=== PATIENT | male | born 1955 | race Caucasian/White ===

== ENCOUNTER 2020-12-06 23:40 | Inpatient (IN) | payer OTHER, MEDICAID ==
[~2020-12-06] VITALS: Ht 170.2 cm; Wt 90.7 kg
[2020-12-06 23:51] VITALS: BP 137/70
--- NOTE | 2020-12-06 23:51 | NUR ---
PT HANG ALS. TAKEN TO BED 7
--- NOTE | 2020-12-06 23:51 | NUR ---
65/M BIBA FROM [facility] DUE TO ABNORMAL LABS (HGB 6.8). PT AAOX4 AND ABLE TO MAKE NEEDS KNOWN. PT CURRENTLY ON TRACH TO VENT. PT NOT IN DISTRESS. ABD SOFT AND NONTENDER, PT WITH GTUBE IN PLACE. PT WITH MALDONADO CATHETER DRAINING WELL. SKIN IS WARM AND DRY. PT WITH SACRAL AND HEEL WOUND. PMH: CVA, HTN, RESPI FAILURE, COPD NKDA
--- NOTE | 2020-12-06 23:52 | NUR ---
Respiratory Therapist at bedside for respiratory intervention.
[2020-12-07] MEDS ORDERED: NACL 0.9% 1,000 ML IV ONE
[2020-12-07 00:19] VITALS: BP 134/66
[2020-12-07 00:23] LABS: BASOPHILS # (AUTO) 0.1 K/uL (0.00-0.22); BASOPHILS % (AUTO) 0.8 % (0.0-2.0); EOSINOPHILS # (AUTO) 1.1 K/uL (0-0.4); EOSINOPHILS % (AUTO) 6.5 % (0.0-4.0); HEMATOCRIT 22.3 % (36-52); LYMPHOCYTES # (AUTO) 1.6 K/uL (2.0-11.5); LYMPHOCYTES % (AUTO) 9.6 % (20.5-51.1); MEAN CORPUSCULAR HEMOGLOBIN 26 pg (27-31); MEAN CORPUSCULAR HGB CONC 31 g/dL (33-37); MEAN CORPUSCULAR VOLUME 83.5 fL (80-94); MONOCYTES # (AUTO) 1.5 K/uL (0.8-1.0); NEUTROPHILS # (AUTO) 12.4 K/uL (1.8-7.7); NEUTROPHILS % (AUTO) 74.1 % (42.2-75.2); PLATELET COUNT (AUTO) 664 K/uL (140-450); RED BLOOD CELL COUNT(AUTO) 2.67 MIL/uL (4.20-6.10); RED CELL DISTRIBUTION WIDTH 20.1 % (11.6-13.7); WHITE BLOOD COUNT (AUTO) 16.7 K/uL (4.8-10.8)
[2020-12-07 00:32] LABS: HEMOGLOBIN 6.9 g/dL (12.0-18.0)
[2020-12-07] MEDS ORDERED: ALBUTEROL SULFATE/IPRATROPIU 3 ML SOL IH ONE ×2 (00:40→02:00)
--- NOTE | 2020-12-07 00:43 | NUR ---
Respiratory Therapist at bedside for respiratory intervention.
--- NOTE | 2020-12-07 01:05 | NUR ---
PLACED PT ON VENT PER ARRIVAL IN ER ON THIS FOLLOWING SETTING PRVC 28%, 450, R16 PEEP 5, SATING 97%. PT IS TRACHED WITH PORTEX SIZE 8. AIRWAY PATENT, ALARM SET AUDIBLE, VENTILATOR IS PLUGGED INTO THE RED OUTLET, AMBU BAG @ BEDSIDE . NO RESPIRATORY DISTRESS NOTED AT THIS TIME. B/S PER ARRIVAL IS RALES BILATERALLY. WILL CONTINUE TO MONITOR.
[2020-12-07 01:08] LABS: ALBUMIN 2.4 g/dL (3.4-5.0); CREATININE 0.6 mg/dL (0.6-1.3); THYROID STIMULATING HORMONE 5.86 uIU/mL (0.34-3.74)
[2020-12-07 01:19] LABS: ANION GAP 9.5 (8-16); CARBON DIOXIDE 31.4 mmol/L (21-32); POTASSIUM 4.9 mmol/L (3.5-5.1); TOTAL BILIRUBIN 0.2 mg/dL (0.0-1.0)
--- NOTE | 2020-12-07 01:52 | NUR ---
Dr. Ramsey examining patient.
[2020-12-07] MEDS ORDERED: HYDROcodone/APAP 5/325 MG 1 TAB TAB PO ONE (02:00)
[2020-12-07] MEDS ORDERED: AZITHROMYCIN 500 MG in DEXTROSE 5% 250 ML IV ONE (02:05)
--- NOTE | 2020-12-07 02:08 | NUR ---
PATIENT GAVE VERBAL CONSENT TO HAVE CT ANGIO PERFORMED. PATIENT STATES UNABLE TO SIGN CONSENT FORM.
[2020-12-07] MEDS ORDERED: CRUSHER, PILL MC ONE (02:11)
--- NOTE | 2020-12-07 02:23 | NUR ---
RT AT [facility] FOR BREATHING TREATMENT.
[2020-12-07] MEDS ORDERED: AZITHROMYCIN 500 MG INJ VIAL IV ONE (02:47)
[2020-12-07] MEDS ORDERED: cefTRIAXone 1,000 MG VIAL ONE (02:47)
[2020-12-07 03:08] VITALS: BP 132/74
--- NOTE | 2020-12-07 04:09 | NUR ---
PT TAKEN TO CT
--- NOTE | 2020-12-07 04:25 | NUR ---
PT BACK FROM CT
--- NOTE | 2020-12-07 05:30 | NUR ---
PT SUCTIONED, ORAL CARE GIVEN. PT TURNED AND REPOSITIONED. PT NOT IN DISTRESS.
[2020-12-07] MEDS ORDERED: predniSONE 20 MG TAB GT ONE (05:35)
[2020-12-07] MEDS ORDERED: DEXT 5% / NACL 0.9% 1,000 ML IV ONE (05:55)
[2020-12-07] MEDS ORDERED: ACET-8386 GT (06:36)
[2020-12-07] MEDS ORDERED: CINN1CAP2 GT (06:36)
[2020-12-07] MEDS ORDERED: DOCU-299 GT (06:36)
[2020-12-07] MEDS ORDERED: CHLOR MM (06:36)
[2020-12-07] MEDS ORDERED: SENN-73 GT (06:36)
[2020-12-07] MEDS ORDERED: ONDA4TAB GT (06:36)
[2020-12-07] MEDS ORDERED: LACT1TAB35 GT (06:36)
[2020-12-07] MEDS ORDERED: CRAN450T5 GT (06:36)
[2020-12-07] MEDS ORDERED: HEPA500056 SQ (06:36)
[2020-12-07] MEDS ORDERED: PUL.5N INH (06:36)
[2020-12-07] MEDS ORDERED: PSYL0.4C2 GT (06:36)
[2020-12-07] MEDS ORDERED: ACET-2619 GT (06:36)
[2020-12-07] MEDS ORDERED: GABA-636 GT (06:36)
[2020-12-07] MEDS ORDERED: LANS15EC28 GT (06:36)
[2020-12-07] MEDS ORDERED: THIA500T9 GT (06:36)
[2020-12-07] MEDS ORDERED: MIRABULK GT (06:36)
--- NOTE | 2020-12-07 07:15 | NUR ---
REPORT RECEIVED FROM LORENZA RICE FOR CONTINUITY OF CARE. PT HAS CERIVCAL COLLAR. A&OX4. PT TRACH TO VENT. AC/VC MODE FIO2 28%, TV 450, RATE 16, PEEP 6. PT SINUS TACHYCARDIA ON MONITOR. LUNG SOUNDS CLEAR. IV SITE RT FA 20G, INFUSING D5/NS AT 65ML/HR AND LT AC 20G, INTACT, PATENT, GOOD BLOOD RETURN. GTUBE IN PLACE, CLAMPED. MALDONADO CATHETER IN PLACE. SKIN DRY WARM TO TOUCH. SACRAL WOUND NOTED, R HEEL DTI AND LT HEEL REDNESS.
--- NOTE | 2020-12-07 07:20 | NUR ---
PT HAS FEVER, 100.8F. UNABLE TO START BLOOD TRANSFUSION. TYLENOL PRN GIVEN. COOLING MEASURES IN PLACE.
--- NOTE | 2020-12-07 07:25 | NUR ---
DR COOPER AT BEDSIDE EXAMINING PT
[2020-12-07] MEDS: ACETAMINOPHEN 650 MG/20.3 ML UDC GT PRN (07:52)
[2020-12-07] MEDS ORDERED: DOCUSATE SODIUM 100 MG GELCAP PO PRN (08:25)
[2020-12-07] MEDS ORDERED: POTASSIUM CHLORIDE 10 MEQ TABER PO PRN (08:25)
[2020-12-07] MEDS ORDERED: guaiFENesin DM 200/20 MG-10 ML 10 ML UDC PO PRN (08:25)
[2020-12-07] MEDS ORDERED: ACETAMINOPHEN 325 MG TAB PO PRN (08:25)
[2020-12-07] MEDS ORDERED: ONDANSETRON 4 MG/2 ML VIAL IM/IVP PRN (08:25)
--- NOTE | 2020-12-07 08:54 | NUR ---
DR MAYNARD AT BEDSIDE EXAMINING PT
--- NOTE | 2020-12-07 09:00 | NUR ---
RECEIVED CALL FROM PT'S FAMILY FESTUS. UPDATED ON PT STATUS. ALL QUESTIONS AND CONCERNS ANSWERED AT THIS TIME.
[2020-12-07] MEDS ORDERED: PIPERACILLIN/TAZOBACTAM 3.375 GM VIAL IV ONE (09:27)
[2020-12-07] MEDS ORDERED: PIPERACILLIN/TAZOBACTAM 3.375 GM in DEXTROSE 5% 50 ML IV SCH (09:30)
[2020-12-07] MEDS: PANTOPRAZOLE 40 MG TABEC PO SCH (09:41)
[2020-12-07 11:00] VITALS: BP 142/69
--- NOTE | 2020-12-07 11:25 | NUR ---
LAB AT BEDSIDE
--- NOTE | 2020-12-07 13:05 | NUR ---
Patient will be admitted to care of DR MAYNARD. Admited to TELEMETRY. Will go to room 122B. Belongings list completed. Report to VIPUL RICE.
--- NOTE | 2020-12-07 13:24 | NUR ---
TRANSFERRED PT FROM ED TO TELE WITH NO INCIDENT. VENT CONNECTED TO RED OUTLET. ALARMS AUDIBLE. NO SOB OR DISTRESS NOTED. PT AWAKE AND ALERT.
[2020-12-07 13:30] VITALS: BP 124/61
[2020-12-07] MEDS: PIPERACILLIN/TAZOBACTAM 3.375 GM in DEXTROSE 5% 50 ML IV SCH ×2 (14:00→21:10)
[2020-12-07] MEDS: ALBUTEROL SULFATE/IPRATROPIU 3 ML SOL IH SCH ×2 (14:00→19:52)
--- NOTE | 2020-12-07 14:00 | NUR ---
DR. MALDONADO AT BEDSIDE REVIEWING PLAN OF CARE WITH PATIENT. EXPLAINED COLONOSCOPY AND EGD PROCEDURE TO PATIENT TO CHECK FOR POSSIBLE BLEEDING SOURCE. PATIENT IS AAOX3, ABLE TO MOUTH AND ANUNCIATE WORDS WITH NO SPEECH DUE TO BEING VENTILATED. PATIENT VERBALIZED UNDERSTANDING FOR BOTH PROCEDURES AND VERBALLY CONSENTED TO HAVING COLONOSCOPY AND EGD DONE TOMORROW. KRYSTAL WHITMORE AT BEDSIDE WITH DR. MALDONADO AND WITNESSED EXPLAINING TO PATIENT THE PROCEDURE AND CONSENTING FOR EGD AND COLONOSCOPY TOMORROW.
--- NOTE | 2020-12-07 14:54 | NUR ---
PATIENT HAS BEEN SCREENED AND CATEGORIZED HIGH NUTRITION RISK. PATIENT WILL BE SEEN WITHIN 1-2 DAYS OF ADMISSION. 12/07/20-12/08/[address]
[2020-12-07] MEDS ORDERED: SENNA 8.6 MG TAB PO SCH (15:30)
[2020-12-07] MEDS ORDERED: MAGNESIUM CITRATE 300 ML BTL PO SCH (15:30)
[2020-12-07] MEDS ORDERED: BOWEL EVACUANT DRINK 4,000 ML PDS PO SCH (15:30)
--- NOTE | 2020-12-07 15:32 | NUR ---
DC PLANNING: SPOKE WITH PATIENTS SISTER FESTUS BY PHONE. STATES SHE IS THE DPOA FOR THE PATIENT, ALSO ASKS THAT HER SISTER CRISTIAN NOT BE CALLED SHE IS VERY EMOTIONAL ABOUT HER BROTHER. PATIENT RESIDES AT [facility], FESTUS WOULD LIKE THE PATIENT TO RETURN THERE. PATIENT IS BEDBOUND AND TOTALLY DEPENDENT FOR ALL CARE BUT IS ABLE TO MOVE HIS RIGHT ARM. PATIENT IS ALERT AND ORIENTED, ABLE TO COMMUNICATE BY MOUTHING WORDS. PATIENT IS S/P FALL IN AUGUST WITH CERVICAL FRACTURE, WAS LIVING AT HOME PRIOR THIS EVENT. CM WILL CONTINUE TO FOLLOW FOR NEEDS.. Addendum: 12/14/20 at 1425 by Jodie Campbell CM DC PLANNING: DC ORDER RECEIVED FOR PATIENT TO RETURN TO [facility], CONTINUE IV ABX AND WOUND CARE. INFORMATION FAXED TO BANDAR AT [facility], PATIENT ASSIGNED RM 121C, DR NICHOLE ACCEPTING. [facility] WILL TRANSPORT WITH CCT/RT, RECLAMATION ENGINEER TIME 1630. ABOVE ENDORSED TO PATIENTS KRYSTAL MATTHEW, SIRIA ALSO SPOKE WITH PATIENTS SISTER FESTUS TO LET HER KNOW. CM WILL CONTINUE TO FOLLOW FOR NEEDS.
[2020-12-07] MEDS: HYDROcodone/APAP 7.5/325 MG 1 TAB PO PRN (15:52)
--- NOTE | 2020-12-07 15:53 | NUR ---
PATIENT COMPLAINS OF LOW BACK PAIN. NORCO GIVEN AT THIS TIME. OTHER SCHEDULED MEDICATIONS DUE GIVEN. WILL CONTINUE TO MONITOR.
[2020-12-07] MEDS ORDERED: SODIUM FERRIC GLUCONATE 125 MG in NACL 0.9% 100 ML IV SCH (17:00)
[2020-12-07 17:12] LABS: CHOL/HDL RATIO 3.8 (1-4.5); FREE T4 (FREE THYROXINE) 1.03 ng/dL (0.76-1.46)
[2020-12-07 17:13] LABS: APPEARANCE,URINE CLEAR (CLEAR); BILIRUBIN,URINE NEGATIVE (NEGATIVE); BLOOD, URINE NEGATIVE (NEGATIVE); COLOR,URINE YELLOW (YELLOW); LEUKOCYTE ESTERASE ,URINE 2+ (NEGATIVE); NITRITE, URINE POSITIVE (NEGATIVE); PH,URINE >=9.0 (5.0-9.0); UGLUCOSE NEGATIVE (NEGATIVE)
[2020-12-07 17:22] LABS: PROTHROMBIN TIME 11.3 secs (10.8-13.4)
[2020-12-07 17:26] LABS: BARBITURATE, URINE NEGATIVE ng/ml (NEG <=200); BENZODIAZEPINE, URINE NEGATIVE ng/mL (NEG <=200); CANNABINOID, URINE NEGATIVE ng/mL (NEG <=50); COCAINE, URINE NEGATIVE ng/mL (NEG <=300); PHENCYCLIDINE SCREEN,URINE NEGATIVE ng/mL (NEG <=25)
[2020-12-07 17:27] LABS: OPIATE, URINE POSITIVE ng/mL (NEG <=2000)
[2020-12-07] MEDS: LACTULOSE 20 GM/30 ML UDC PO SCH ×2 (17:29→21:11)
--- NOTE | 2020-12-07 17:29 | NUR ---
SCHEDULED MEDICATIONS DUE GIVEN WILL CONTINUE TO MONITOR.
[2020-12-07 19:23] LABS: CALCIUM OXALATE CRYSTALS,UR 0-10 /HPF (None Seen); RBC,URINE 0-5 /HPF (0-5)
--- NOTE | 2020-12-07 19:23 | NUR ---
GAVE BEDSIDE REPORT TO TECHNICAL COMMUNICATION TEACHER NURSE FOR CONTINUITY OF CARE. PT IS STABLE.
--- NOTE | 2020-12-07 19:25 | NUR ---
RECEIVED REPORT FORM AM SHIFT RN. PATIENT ON BED AWAKE, ALERT RESTING WITH TRACH TO VENT FIO2 AT 28. NO ACUTE DISTRESS NOTED AT THIS TIME. IVF OF D5NS AT 65 ML/HR INFUSING WELL ON THE RFA. SAFETY MEASURES IN PLACE. CALL LIGHT WITHIN REACH.
[2020-12-07 20:00] VITALS: BP 120/64
--- NOTE | 2020-12-07 21:15 | NUR ---
SCHEDULED MEDS GIVEN ORDERED.
--- NOTE | 2020-12-07 22:15 | NUR ---
STARTED BLOOD TRANSFUSION 1 UNIT PRBC. V/S MONITORED AND RECORDED.
--- NOTE | 2020-12-07 22:30 | NUR ---
NO ADVERSE REACTION NOTED. NO SOB, RESPIRATION EVEN UNLABORED. AFEBRILE.
[2020-12-08] VITALS (8 sets, daily range): BP systolic 120–133; BP diastolic 60–80
[2020-12-08] MEDS: ZOLPIDEM 5 MG TAB PO PRN (00:16)
--- NOTE | 2020-12-08 01:10 | NUR ---
ORAL CARE RENDERED
--- NOTE | 2020-12-08 04:00 | NUR ---
PATIENT IS KEPT CLEAN, DRY AND COMFORTABLE.
[2020-12-08] MEDS: PIPERACILLIN/TAZOBACTAM 3.375 GM in DEXTROSE 5% 50 ML IV SCH ×3 (05:08→21:15)
[2020-12-08 05:28] LABS: BASOPHILS % (AUTO) 0.2 % (0.0-2.0); EOSINOPHILS # (AUTO) 0.1 K/uL (0-0.4); EOSINOPHILS % (AUTO) 0.8 % (0.0-4.0); HEMATOCRIT 22.9 % (36-52); HEMOGLOBIN 7.3 g/dL (12.0-18.0); LYMPHOCYTES # (AUTO) 1.9 K/uL (2.0-11.5); LYMPHOCYTES % (AUTO) 11.1 % (20.5-51.1); MEAN CORPUSCULAR HEMOGLOBIN 27 pg (27-31); MEAN CORPUSCULAR HGB CONC 32 g/dL (33-37); MEAN CORPUSCULAR VOLUME 84.5 fL (80-94); MONOCYTES # (AUTO) 1.8 K/uL (0.8-1.0); MONOCYTES % (AUTO) 10.8 % (1.7-9.3); NEUTROPHILS # (AUTO) 13.1 K/uL (1.8-7.7); NEUTROPHILS % (AUTO) 77.1 % (42.2-75.2); PLATELET COUNT (AUTO) 595 K/uL (140-450); RED BLOOD CELL COUNT(AUTO) 2.72 MIL/uL (4.20-6.10); RED CELL DISTRIBUTION WIDTH 19.6 % (11.6-13.7)
[2020-12-08 06:21] LABS: ANION GAP 14.6 (8-16); CREATININE 0.7 mg/dL (0.6-1.3); POTASSIUM 3.6 mmol/L (3.5-5.1)
[2020-12-08] MEDS: ALBUTEROL SULFATE/IPRATROPIU 3 ML SOL IH SCH ×3 (07:15→19:09)
--- NOTE | 2020-12-08 07:15 | NUR ---
ENDORSED TO AM RN FOR CONTINUITY OF CARE. PT IN STABLE CONDITION.
--- NOTE | 2020-12-08 07:30 | NUR ---
ARRIVED TO FIND PT TOLERATING VENT SETTINGS. NO RESP DISTRESS NOTED, GAVE PT RESP TX, AND NOTIFIED PT THAT I WOULD BE BACK LATER. PT INDICATED HE UNDERSTOOD AND IS DOING WELL.
--- NOTE | 2020-12-08 07:32 | NUR ---
RECEIVED BEDSIDE REPORT FROM AUTOMATIC EQUIPMENT TECHNICIAN NURSE FOR CONTINUITY OF CARE. PATIENT IS AO X4, ABLE TO MAKE NEEDS KNOWN. ON TRACH TO VENT WITH RESPIRATIONS EVEN AND UNLABORED. NO RESPIRATORY DISTRESS NOTED. VENT SETTINGS FIO2: 28% VT 450 R 16 PEEP 5. SKIN IS WARM, DRY, AND NON-DIAPHORETIC. IV SITE ON RFA 20G AND LAC 20G. BOTH INTACT AND PATENT. INFUSING D5NS AT 65 ML/HR. NOTED SACRAL AND HEEL WOUND, NO DRAINAGE AT THIS TIME. DENIES PAIN AT THE MOMENT. WOUND CARE EVALUATION WAS ORDERED. PLAN OF CARE DISCUSSED. SAFETY MEASURES IN PLACE. BED IN LOW POSITION. CALL LIGHT WITHIN REACH. WILL CONTINUE TO MONITOR.
--- NOTE | 2020-12-08 08:01 | NUR ---
FNS CONSULT FOR WOUNDS/PRESSURE INJURIES AND FNS REFERRAL FOR DYSPHAGIA, UNHEALED WOUNDS, AND TF WERE RECEIVED.
[2020-12-08] MEDS: PANTOPRAZOLE 40 MG TABEC PO SCH (08:55)
[2020-12-08] MEDS: LACTULOSE 20 GM/30 ML UDC PO SCH ×2 (08:55→13:00)
--- NOTE | 2020-12-08 09:25 | NUR ---
WOUND CARE EVALUATION NOTE: SKIN ASSESSMENT DONE ON THIS PT WITH HISTORY OF S/P FALL AND RESULTING IN CERVICAL INJURY PT. ADMITTED FROM SNF WITH ABNORMAL LABS AND MULTIPLE PRESSURE INJURIES WITH INFECTED SACRAL WOUND, HISTORY OF CHRONIC RESPIRATORY FAILURE ON VENT, DYSPHAGIA WITH PEG TUBE, SEVERE MALNUTRITION. PT. FOLLOW DIRECTIONS AND MOUTH READING WITH COMMUNICATION. POC DISCUSSED WITH DR. MAYNARD REQUEST SURGEON CONSULT AND POSSIBLE DEBRIDEMENT. PT. REFUSES HEEL RAISERS AT FIRST THEN WITH RISK AND BENIFIT EXPLAINED PT. AGREEABLE WITH PLAN. POC DISCUSSED WITH PRIMARY RN AND PT. PT. MOUTHING UNDERSTANDING. CLARIFICATION: LEFT HEEL SKIN INTACT, NON-BLANCHABLE REDNESS INTEGUMENTARY -NECK SKIN HAIRY AND INTACT, CERVICAL COLLAR IN PLACE -TRACH MARIMAR-STOMA SKIN INTACT AND DRY -RIGHT HEEL PRESSURE INJURY UN-STAGEABLE 2X1.5CM BLACK ESCHAR TISSUE, NO ODOR, MARIMAR-WOUND SKIN BLANCHABLE REDNESS, PEELING CALLUSES MOIST AND INTACT. -PRESSURE INJURY STAGE 1 LEFT HEEL 2X2CM PEELING CALLUSES MUSHY AND INTACT. -LEFT LATERAL MALLEOLUS PRESSURE INJURY STAGE 3, 2X2CM 70 % YELLOW SLOUGH AND 30% PINK TISSUE, NO ODOR, MARIMAR-WOUND SKIN INTACT BLANCHABLE REDNESS. -SACRALCOCCYX PRESSURE INJURY STAGE 4 [id number] TUNNEL WOUND TO 6 OCLOCK DIRECTION 2CM AND UNDERMINING TO 3 OCLOCK DIRECTION 1CM,WOUND BED 80% MIX OF BLACK, YELLOW AND DARK BROWN MOIST SLOUGH TISSUE, 20% OF PALE PINK TISSUE,MODERATE PURULENT DRAINAGE , MILD ODOR, MARIMAR-WOUND SKIN MOIST, INTACT. RECOMMENDATIONS: -SURGEON CONSULT -SKIN INSPECTION UNDER NECK COLLAR QSHIFT -SACRALCOCCYX AND LEFT LATERAL MALLEOLUS CLEANS WITH WOUND CARE SOLUTION, PAT DRY, APPLY SILVER ALGINATE DRESSING TO WOUND BED AND COVER WITH ABD. DRESSING AND SECURE WITH TAPE QD AND PRN IF SOILING -APPLY SOAKED BETADINE DRESSING TO RIGHT HEEL WRAPE WITH KERLIX ROLL SECURED WITH TAPE QD AND PRN IF SOILING -TURN AND REPOSITION PATIENT Q 2H -ASSESS AND MONITOR SKIN CONDITION DURING POSITION CHANGE -OFFLOAD BILATERAL HEELS BY PLACING PILLOWS UNDER CALVES AT ALL TIMES, UNLESS OTHERWISE CONTRAINDICATED -PRESSURE REDISTRIBUTION SURFACE AND PLACING PILLOWS/ OFFLOADING SACRALCOCCYX AND LEFT HIP -KEEP SKIN CLEAN AND DRY AT ALL TIMES.
--- NOTE | 2020-12-08 09:30 | NUR ---
WOUND CARE NURSE YURIY AT BEDSIDE EVALUATING PATIENT'S WOUNDS.
--- NOTE | 2020-12-08 09:45 | NUR ---
OBTAIN STOOL OCCULT SAMPLE. WILL TURN IN TO LAB.
--- NOTE | 2020-12-08 09:46 | NUR ---
ALL SCHEDULED MEDS GIVEN. PATIENT IS STABLE. NO DISTRESS NOTED. WILL CONTINUE TO MONITOR.
--- NOTE | 2020-12-08 10:09 | NUR ---
ASSISTED DINKEY OPERATOR SLATE AND AIDE WITH TURNING, CLEANING, AND REPOSITIONING. PT WAS NOT HAPPY ABOUT REPOSITIONING BUT UNDERSTANDS THAT IN ORDER FOR HEALING OF WOUNDS TO BE OPTIMUM HE NEEDS TO COOPERATE WITH REPOSITIONING.
--- NOTE | 2020-12-08 10:40 | NUR ---
PATIENT REQUESTED TO BE SUCTIONED. PATIENT TOLERATED SUCTION AND IS RELIEVED. DENIES DISCOMFORT OR PAIN AT THE MOMENT. WILL CONTINUE TO MONITOR.
[2020-12-08 10:59] LABS: FERRITIN 297 ng/mL (30 - 400)
--- NOTE | 2020-12-08 13:03 | NUR ---
DR. MAYNARD APPROVED RD RECOMMENDATIONS FOR VITAMIN C 500 MG BID AND MULTIVITAMIN ONCE DAILY. RN WAS NOTIFIED.
[2020-12-08 13:05] LABS: T4 (THYROXINE) 6.8 ug/dL (4.5 - 12.0)
--- NOTE | 2020-12-08 13:08 | NUR ---
12/08/20 RD INITIAL ASSESSMENT COMPLETED PLEASE REFER TO NUTRITION ASSESSMENT UNDER CARE ACTIVITY FOR ESTIMATED NUTRITIONAL NEEDS. 1. RECOMMEND VITAL 1.2 @ 70 ML/HR; FREE WATER FLUSH OF 110 ML Q4H -THIS WILL PROVIDE 2016 KCAL AND 126 GM OF PROTEIN, MEETING 100% OF ESTIMATED KCAL AND PROTEIN NEEDS. 2. RECOMMEND VITAMIN C 500 MG AND MULTIVITAMIN ONCE DAILY. STACIE BID 3. RD TO FOLLOW-UP 2-3 DAYS, HIGH RISK AKIN BAUER RD
[2020-12-08] MEDS: ALGINATE DRESSING MC SCH (13:14)
[2020-12-08] MEDS: GAUZE TP SCH (13:14)
--- NOTE | 2020-12-08 13:32 | NUR ---
ALL SCHEDULED MEDS GIVEN. PT IS STABLE. NO DISTRESS NOTED. WILL CONTINUE TO MONITOR.
--- NOTE | 2020-12-08 13:35 | NUR ---
PATIENT DISCHARGED OFF THE UNIT. FAMILY PICKED UP PATIENT AT THE FRONT OF THE LOBBY. IV AND ID BAND REMOVED. PT WAS STABLE PRIOR TO DISCHARGE. Addendum: 12/08/20 at 1402 by Sidney Nelson RN RN WRONG NOTE ON PATIENT.
--- NOTE | 2020-12-08 13:40 | NUR ---
PATIENT REQUESTED TO BE SUCTIONED. PATIENT TOLERATED SUCTION AND IS RELIEVED. DENIES DISCOMFORT OR PAIN AT THE MOMENT. WILL CONTINUE TO MONITOR.
[2020-12-08] MEDS ORDERED: DEXT 5% /NACL 0.9% 1,000 ML IV SCH (13:50)
--- NOTE | 2020-12-08 13:50 | NUR ---
DR. MALDONADO AND OR NURSES AT BEDSIDE PREPARING PATIENT FOR COLONOSCOPY AND EGD PROCEDURE. DR. MALDONADO DISCUSSED RISKS AND BENEFITS TO PATIENT REGARDING BOTH PROCEDURES. PATIENT ACKNOWLEDGED PROCEDURES AND SIGNED THE CONSENT FORMS. ALSO HAS SIGNED THE CONSENT FORMS.
--- NOTE | 2020-12-08 14:15 | NUR ---
PATIENT UNDERGOING COLONOSCOPY AND EGD. PT WAS STABLE PRIOR TO BEGINNING PROCEDURE.
[2020-12-08] MEDS ORDERED: fentaNYL citrate 0.05 MG/ML VIAL ONE (14:44)
[2020-12-08] MEDS ORDERED: MIDAZOLAM 5 MG/5 ML VIAL ONE (14:44)
[2020-12-08] MEDS ORDERED: diphenhydrAMINE 50 MG/ML VIAL ONE (14:45)
--- NOTE | 2020-12-08 16:10 | NUR ---
PATIENT COMPLETED BOTH EGD AND COLONOSCOPY PROCEDURE. PT'S VS IS STABLE AND NO S/S OF RESPIRATORY DISTRESS NOTED. WILL CONTINUE TO MONITOR.
[2020-12-08] MEDS ORDERED: POTASSIUM CHLORIDE 20% 40 MEQ/15 ML UDC PO SCH (16:30)
[2020-12-08] MEDS ORDERED: MIDAZOLAM 2 MG/2 ML VIAL IVP ONE (16:40)
[2020-12-08] MEDS ORDERED: fentaNYL citrate 0.05 MG/ML VIAL IVP ONE (16:40)
[2020-12-08] MEDS ORDERED: FUROSEMIDE 20 MG/2 ML VIAL IVP SCH (17:00)
--- NOTE | 2020-12-08 19:00 | NUR ---
STARTED PATIENT BACK ON JEVITY 1.2 RUNNING AT 40 ML/HR BUT GOAL IS AT 65 ML/HR. H2O FLUSH AT 50 ML/HR. NO RESIDUAL NOTED. WILL CONTINUE TO MONITOR
[2020-12-08] MEDS: DEXT 5% / NACL 0.9% 1,000 ML IV SCH (19:03)
--- NOTE | 2020-12-08 19:25 | NUR ---
ENDORSED TO PRINTING AGENT NURSE FOR CONTINUITY OF CARE. PT IS STABLE.
--- NOTE | 2020-12-08 19:30 | NUR ---
RECEIVED REPORT FORM KRYSTAL KARIMI. PATIENT IN BED RESTING WITH TRACH TO VENT FI02 AT 28 , RATE AT 16. NO SOB NOTED. IVF INFUSING AT 120 ML/HR. G-TUBE FEEDING OF JEVITY 1.2 AT 40 ML/HR WITH A GOAL OF 65 ML/HR. CALL LIGHT WITHIN REACH, SAFETY MEASURES IN PLACE. DENIES PAIN AT THIS TIME. WILL CONTINUE TO MONITOR.
[2020-12-08] MEDS: FERROUS SULFATE 300 MG/5 ML UDC GT SCH (21:15)
[2020-12-08] MEDS: ASCORBIC ACID 500 MG/5 ML ORASYR GT SCH (21:15)
--- NOTE | 2020-12-08 21:28 | NUR ---
SCHEDULED MEDS GIVEN ORDERED.
[2020-12-08] MEDS: HYDROcodone/APAP 7.5/325 MG 1 TAB PO PRN (23:21)
[2020-12-09] VITALS (7 sets, daily range): BP systolic 112–143; BP diastolic 59–95
--- NOTE | 2020-12-09 02:27 | NUR ---
ORAL CARE RENDERED. SUCTIONED NEEDED
[2020-12-09] MEDS: DEXT 5% / NACL 0.9% 1,000 ML IV SCH ×4 (03:15→23:33)
[2020-12-09] MEDS: PIPERACILLIN/TAZOBACTAM 3.375 GM in DEXTROSE 5% 50 ML IV SCH ×3 (04:45→20:24)
[2020-12-09 05:22] LABS: ANION GAP 11.5 (8-16); CREATININE 0.6 mg/dL (0.6-1.3); POTASSIUM 3.5 mmol/L (3.5-5.1)
[2020-12-09 06:02] LABS: BASOPHILS # (AUTO) 0.1 K/uL (0.00-0.22); BASOPHILS % (AUTO) 0.8 % (0.0-2.0); EOSINOPHILS # (AUTO) 0.5 K/uL (0-0.4); EOSINOPHILS % (AUTO) 3.4 % (0.0-4.0); HEMATOCRIT 22.1 % (36-52); LYMPHOCYTES # (AUTO) 1.5 K/uL (2.0-11.5); MEAN CORPUSCULAR HEMOGLOBIN 27 pg (27-31); MEAN CORPUSCULAR HGB CONC 31 g/dL (33-37); MEAN CORPUSCULAR VOLUME 84.6 fL (80-94); MONOCYTES # (AUTO) 1.6 K/uL (0.8-1.0); MONOCYTES % (AUTO) 11.8 % (1.7-9.3); NEUTROPHILS # (AUTO) 9.7 K/uL (1.8-7.7); PLATELET COUNT (AUTO) 503 K/uL (140-450); RED BLOOD CELL COUNT(AUTO) 2.61 MIL/uL (4.20-6.10); RED CELL DISTRIBUTION WIDTH 20.2 % (11.6-13.7); WHITE BLOOD COUNT (AUTO) 13.2 K/uL (4.8-10.8)
--- NOTE | 2020-12-09 07:15 | NUR ---
RECEIVED BEDSIDE REPORT FROM BAGGING MACHINE OPERATOR NURSE FOR CONTINUITY OF CARE. PT IS AWAKE AND ALERT. RESPONDING TO QUESTIONS APPROPRIATELY. PT IS TRACH TO VENT WITH BREATHING UNLABORED. O2 SAT IS 98%. VENT SETTINGS; FIO2 28%, PEEP 5, VT 450, RT 16. SR ON TELE MONITORING. G TUBE IN PLACE INFUSING FEEDING AT 60 ML PER HOUR PER ORDER. SKIN IS WARM AND DRY. SACRAL WOUND WITH OPTIFOAM IN PLACE. IV IS IN THE LEFT AC 20 GAUGE AND RIGHT FOREARM 20 GAUGE INFUSING FLUIDS ORDERED. PT IS STABLE. NO DISTRESS NOTED.
--- NOTE | 2020-12-09 07:15 | NUR ---
ENDORSED TO AM SHIFT RN FOR CONTINUITY OF CARE. PATIENT IS STABLE.
[2020-12-09 07:23] LABS: HEMOGLOBIN 6.9 g/dL (12.0-18.0)
[2020-12-09] MEDS: ALBUTEROL SULFATE/IPRATROPIU 3 ML SOL IH SCH ×3 (07:29→19:23)
--- NOTE | 2020-12-09 07:51 | NUR ---
NOTIFIED DR. PAZ VIA TEXT MESSAGE ABOUT CRITICAL LAB RESULT; HGB 6.9, HCT 22.1. WILL WAIT FOR RESPONSE.
--- NOTE | 2020-12-09 09:00 | NUR ---
RECEIVED TEXT MESSAGE FROM DR. PAZ TO TRANSFUSE 1 UNIT PRBC. WILL ADMINISTER ONCE READY.
--- NOTE | 2020-12-09 09:30 | NUR ---
ORAL CARE WAS PROVIDED. PT TOLERATED IT WELL. PT WAS REPOSITIONED ORDERED. IV'S IN BOTH UPPER EXTREMITIES ARE PATENT AND INTACT. FLUIDS ARE INFUSING IN THE RIGHT FOREARM. PT IS TRACH TO VENT WITH O2 SAT AT 99%. G TUBE RESIDUAL IS 40 ML AT THIS TIME. PT IS TOLERATING FEEDING FAIRLY. PT IS STABLE.
[2020-12-09] MEDS: FERROUS SULFATE 300 MG/5 ML UDC GT SCH ×2 (09:53→20:26)
[2020-12-09] MEDS: ASCORBIC ACID 500 MG/5 ML ORASYR GT SCH ×2 (09:53→20:26)
[2020-12-09] MEDS: MULTIVITAMIN 1 TAB GT SCH (09:54)
--- NOTE | 2020-12-09 10:40 | NUR ---
CALLED BLOOD BANK AND ASKED IF UNIT OF PRBC IS READY. THEY STATED IT WASN'T READY AND WILL CALL IN THIRTY MIN WHEN ITS READY.
[2020-12-09 11:00] LABS: FOLIC ACID > 20.00 ng/mL (>3.0)
--- NOTE | 2020-12-09 11:19 | NUR ---
BLOOD BANK CALLED TO INFORM ME THAT THE UNIT OF PRBC IS READY.
--- NOTE | 2020-12-09 11:30 | NUR ---
PT WAS REPOSITIONED. PADDED BOOTS ARE IN PLACE. G TUBE FEEDING IS INFUSING. IV FLUIDS ARE INFUSING WELL, IV IS PATENT AND INTACT. NO RESPIRATORY DISTRESS NOTED ON TRACH TO VENT. WILL CONTINUE TO MONITOR PT.
[2020-12-09] MEDS: ALGINATE DRESSING MC SCH (12:34)
[2020-12-09] MEDS: GAUZE TP SCH (12:34)
--- NOTE | 2020-12-09 13:20 | NUR ---
BLOOD TRANSFUSION WAS STARTED. VS ARE STABLE. EDUCATION WAS PROVIDED AND PT NODDED FOR UNDERSTANDING. WILL CONTINUE TO MONITOR PT.
--- NOTE | 2020-12-09 14:34 | NUR ---
BLOOD TRANSFUSION STILL INFUSING. NO S/SX OF ADVERSE REACTIONS. VS ARE STABLE. BREATHING IS UNLABORED ON TRACH TO VENT. WILL CONTINUE TO MONITOR.
--- NOTE | 2020-12-09 16:30 | NUR ---
BLOOD TRANSFUSION IS DONE. ONE UNIT PRBC IS INFUSED. NO RESPIRATORY DISTRESS NOTED ON TRACH TO VENT. VS ARE STABLE. PT IS STABLE AT THIS TIME. NO ADVERSE REACTIONS NOTED. WILL CONTINUE TO MONITOR.
--- NOTE | 2020-12-09 16:32 | NUR ---
CALLED SISTER, EVA, REQUESTED BY SURGEON DR. CRABTREE. HE WANTED TO INFORM HER ABOUT THE DEBRIDEMENT OF THE SACRAL WOUND. LEFT MESSAGE TO CALL BACK. PROCEDURE DISCUSSED WITH PT. PT IS NON VERBAL, BUT ABLE TO MOUTH WORDS USING LIPS. VERIFIED BY SECOND RN. PT IS A&OX3. PT IS ALERT AND AWARE. ABLE TO MAKE NEEDS KNOWN.
--- NOTE | 2020-12-09 16:50 | NUR ---
SPOKE TO SISTER, EVA, INFORMED HER OF PLAN OF CARE REGARDING DEBRIDEMENT. SHE STATED SHE DID NOT NEED TO SPEAK TO THE SURGEON SHE DOES NOT HAVE ANY QUESTIONS.
--- NOTE | 2020-12-09 18:30 | NUR ---
PT WAS CHANGED AND REPOSITIONED. PT TOLERATED THIS WELL. NO COMPLAINTS OF PAIN AT THIS TIME. BREATHING IS UNLABORED ON TRACH TO VENT. O2 SAT IS 99%. DRESSING ON SACRAL IS DRY AND INTACT. NO DRAINAGE NOTED.
--- NOTE | 2020-12-09 19:15 | NUR ---
ENDORSED PT TO DAY SHIFT NURSE FOR CONTINUITY OF CARE. PT IS STABLE AT THIS TIME. PLAN OF CARE DISCUSSED. Addendum: 12/09/20 at 1950 by Kalli Hernandez RN MUSCULOSKELETAL PHYSIOTHERAPIST NURSE NOT DAY SHIFT NURSE
--- NOTE | 2020-12-09 19:20 | NUR ---
RECIEVED BEDSIDE ENDORSMENT FROM DAY SHIFT RN, PT LYING IN BED, A&0X3, ABLE TO MAKE NEEDS KNOWN AND NODS TO QUESTIONS YES OR NO, ST ON MONITOR, TRACH TO VENT F102 28% TV 450 PEEP 5 RATE 16, LUNGS DIMINIHED UPON AUSCULTATION, GTUBE IN PLACE INFUSING JEVITY 1.2 @ 65MLS/HR W/ FWF 50 Q6H, FEEDING HAD RESIDUAL OF 10ML, LAC 20 PIV SALINE LOCKED, RFA 20 G PIV INFUSING D5 NS @ 120MLS/HR, FC IN PLACE DRAINING VIA GRAVITY, SKIN WARM DRY AND NON INTACT, AFEBRILE, SEE WOUND ASSESSMENT, PT SHOWING NO SIGNS OF ACUTE DISTRESS, SAFETY MEASURES IN PLACE, WILL CONTINUE WITH CURRENT POC
--- NOTE | 2020-12-09 20:31 | NUR ---
ADMINISTERED 2100H MEDICATIONS PER MD ORDERS
--- NOTE | 2020-12-09 21:42 | NUR ---
ORAL CARE ABD SUCTIONING PROVIDED, REPOSITIONED PT, NO SIGNS OF ACUTE DISTRESS
[2020-12-09] MEDS: HYDROcodone/APAP 7.5/325 MG 1 TAB PO PRN (23:27)
[2020-12-09] MEDS: ZOLPIDEM 5 MG TAB PO PRN (23:27)
--- NOTE | 2020-12-09 23:33 | NUR ---
PT COMPLAING OF PAIN W/ PAIN SCALE OF 3 OF 10, ADMINISTERED NORCO PER PROTOCOL AND PT REQUEST FOR SLEEPING MEDICATION
--- NOTE | 2020-12-09 23:34 | NUR ---
ORAL CARE AND SUCTIONING GIVEN, REPOSITIONED PT
[2020-12-10] VITALS: BP 143/64
--- NOTE | 2020-12-10 01:49 | NUR ---
PT ASLEEP AND SHOWING NO SIGNS OF ACUTE DISTRESS
--- NOTE | 2020-12-10 03:19 | NUR ---
REPOSITIONED PT, MORNING CARE PROVIDED, ORAL CARE AND SUCTIONING PROVIDED
[2020-12-10 04:00] VITALS: BP 148/74
[2020-12-10] MEDS: PIPERACILLIN/TAZOBACTAM 3.375 GM in DEXTROSE 5% 50 ML IV SCH ×3 (04:08→21:02)
--- NOTE | 2020-12-10 05:08 | NUR ---
REPOSITIONED PT, ORAL CARE AND SUCTIONING PROVIDED
[2020-12-10 05:10] LABS: BASOPHILS # (AUTO) 0.1 K/uL (0.00-0.22); BASOPHILS % (AUTO) 0.5 % (0.0-2.0); EOSINOPHILS # (AUTO) 0.7 K/uL (0-0.4); EOSINOPHILS % (AUTO) 6.5 % (0.0-4.0); HEMATOCRIT 24.7 % (36-52); LYMPHOCYTES # (AUTO) 1.3 K/uL (2.0-11.5); MEAN CORPUSCULAR HEMOGLOBIN 28 pg (27-31); MEAN CORPUSCULAR HGB CONC 32 g/dL (33-37); MEAN CORPUSCULAR VOLUME 85.6 fL (80-94); MONOCYTES # (AUTO) 1.4 K/uL (0.8-1.0); MONOCYTES % (AUTO) 13.3 % (1.7-9.3); NEUTROPHILS # (AUTO) 7.3 K/uL (1.8-7.7); NEUTROPHILS % (AUTO) 67.7 % (42.2-75.2); PLATELET COUNT (AUTO) 462 K/uL (140-450); RED BLOOD CELL COUNT(AUTO) 2.89 MIL/uL (4.20-6.10); RED CELL DISTRIBUTION WIDTH 19.9 % (11.6-13.7); WHITE BLOOD COUNT (AUTO) 10.8 K/uL (4.8-10.8)
[2020-12-10 05:16] LABS: ANION GAP 10.5 (8-16); CARBON DIOXIDE 28.1 mmol/L (21-32); CREATININE 0.5 mg/dL (0.6-1.3); MAGNESIUM 1.9 mg/dL (1.8-2.4); PHOSPHORUS 3.8 mg/dL (2.5-4.9); POTASSIUM 3.6 mmol/L (3.5-5.1)
[2020-12-10] MEDS: ALBUTEROL SULFATE/IPRATROPIU 3 ML SOL IH PRN (05:18)
--- NOTE | 2020-12-10 07:18 | NUR ---
ENDORSED TO DAY SHIFT RN FOR CONTINUITY OF CARE
--- NOTE | 2020-12-10 07:23 | NUR ---
RECEIVED BEDSIDE REPORT FROM NIGHTSHIFT NURSE. PT RESTING IN BED. ABLE TO MAKE SOME NEEDS KNOWN. RESPIRATIONS EVEN AND UNLABORED WITH NO SOB OR RESPIRATORY DISTRESS. SKIN WARM AND DRY TO TOUCH. SAFETY MEASURES IN PLACE. WILL CONTINUE TO MONITOR
--- NOTE | 2020-12-10 07:35 | NUR ---
FOUND PATIENT AWAKE AND ALERT RINGING SHERMAN AT BEDSIDE. PATIENT UNDERSTANDS USE OF SHERMAN, BREATHING TREATMENT, AND AGREED WITH SUCTIONING OF TRACH. PT TOLERATING VENT AT THIS TIME. NO RESP DISTRESS NOTED.
[2020-12-10] MEDS: ALBUTEROL SULFATE/IPRATROPIU 3 ML SOL IH SCH ×3 (07:41→19:25)
[2020-12-10 08:00] VITALS: BP 159/73
[2020-12-10] MEDS: FERROUS SULFATE 300 MG/5 ML UDC GT SCH ×2 (08:21→21:02)
[2020-12-10] MEDS: MULTIVITAMIN 1 TAB GT SCH (08:21)
[2020-12-10] MEDS: ASCORBIC ACID 500 MG/5 ML ORASYR GT SCH ×2 (08:22→21:02)
--- NOTE | 2020-12-10 08:40 | NUR ---
GAVE MEDICATIONS PER MD ORDER. MEDICATION EDUCATION PERFORMED. PT NODDED WITH UNDERSTANDING. PT TOLERATED. ORAL CARE PROVIDED. ALL SAFETY MEASURES ARE IN PLACE. CALL SHERMAN WITHIN REACH.
[2020-12-10] MEDS: HYDROcodone/APAP 7.5/325 MG 1 TAB PO PRN ×3 (10:05→21:05)
--- NOTE | 2020-12-10 10:05 | NUR ---
PATIENT COMPLAINED OF GEN MODERATE PAIN. PRN NORCO ADMINISTERED PRESCRIBED PER MD ORDER. SAFETY MEASURES IN PLACE. WILL CONTINUE TO MONITOR
--- NOTE | 2020-12-10 11:15 | NUR ---
PT SISTER FESTUS AT BEDSIDE VISITING PATIENT. NO SIGNS OF DISTRESS. SAFETY MEASURES IN PLACE. WILL CONTINUE TO MONITOR
[2020-12-10 12:00] VITALS: BP 137/64
[2020-12-10] MEDS: DEXT 5% / NACL 0.9% 1,000 ML IV SCH ×2 (12:10→20:55)
[2020-12-10] MEDS: ALGINATE DRESSING MC SCH (12:36)
[2020-12-10] MEDS: GAUZE TP SCH (12:36)
--- NOTE | 2020-12-10 13:00 | NUR ---
ADMINISTERED SCHED MED PRESCRIBED PER MD ORDER. PT TOLERATED WELL. MEDICATION EDUCATION PERFORMED. PT NODDED UNDERSTANDING. SAFETY MEASURES IN PLACE. WILL CONTINUE TO MONITOR
--- NOTE | 2020-12-10 14:00 | NUR ---
ASSISTED FILLING STATION LABORER WITH TURNING AND REPOSITIONING PATIENT. PT TOLERATED WELL. SAFETY MEASURES IN PLACE. WILL CONTINUE TO MONITOR
[2020-12-10 16:00] VITALS: BP 133/71
[2020-12-10] MEDS ORDERED: INSULIN LISPRO SLIDING SCALE 100 UNITS/ML VIAL SUBQ PRN (16:15)
[2020-12-10] MEDS ORDERED: DEXTROSE 50% 50 ML SYR IVP PRN (16:15)
--- NOTE | 2020-12-10 16:30 | NUR ---
PT BLOOD SUGAR IS 122. NO INSULIN NEEDED AT THIS TIME. SAFETY MEASURES IN PLACE. WILL CONTINUE TO MONITOR
--- NOTE | 2020-12-10 16:57 | NUR ---
PT COMPLAINED OF MODERATE GEN PAIN. PRN NORCO ADMINISTERED PRESCRIBED PER MD ORDER. PT TOLERATED WELL. MEDICATION EDUCATION PERFORMED. PT NODDED WITH UNDERSTANDING. SAFETY MEASURES IN PLACE. WILL CONTINUE TO MONITOR
[2020-12-10] MEDS: BLOOD GLUCOSE MONITORING 1 DEV DEV FS SCH ×3 (16:59→21:02)
--- NOTE | 2020-12-10 18:03 | NUR ---
PT CALLED AND WANTED THE TOP OF HIS SCRATCHED. PT TOLERATED WELL. SAFETY MEASURES IN PLACE. WILL CONTINUE TO MONITOR
--- NOTE | 2020-12-10 19:22 | NUR ---
PT ENDORSED TO TAB MACHINE OPERATOR RN FOR CONTINUITY OF CARE.
--- NOTE | 2020-12-10 19:25 | NUR ---
RECIEVED BEDSIDE ENDORSMENT FROM DAY SHIFT RN, PT LYING IN BED, A&0X3, ABLE TO MAKE NEEDS KNOWN AND NODS TO QUESTIONS YES OR NO, SR ON MONITOR, TRACH TO VENT AC [id number] 28% TV 450 PEEP 5 RATE 16, LUNGS DIMINIHED UPON AUSCULTATION, GTUBE IN PLACE INFUSING JEVITY 1.2 @ 65MLS/HR W/ FWF 50 Q6H, FEEDING HAD RESIDUAL OF 20ML, LAC 20 PIV INFUSING D5 NS @ 120MLS/HR, FC IN PLACE DRAINING VIA GRAVITY, SKIN WARM DRY AND NON INTACT, AFEBRILE, SEE WOUND ASSESSMENT, PT SHOWING NO SIGNS OF ACUTE DISTRESS, SAFETY MEASURES IN PLACE, WILL CONTINUE WITH CURRENT POC
[2020-12-10 20:00] VITALS: BP 124/69
[2020-12-10] MEDS: ZOLPIDEM 5 MG TAB PO PRN (21:05)
--- NOTE | 2020-12-10 21:14 | NUR ---
ADMINISTERED 2100H MEDICATIONS PER MD ORDERS, BLOOD GLUCOSE 114
--- NOTE | 2020-12-10 22:32 | NUR ---
DC PT TUBE FEEDING, TO BE NPO AFTER MIDNIGHT
[2020-12-11] VITALS (8 sets, daily range): BP systolic 124–156; BP diastolic 50–78
--- NOTE | 2020-12-11 00:15 | NUR ---
PT ASLEEP AND SHOWING NO SIGNS OF ACUTE DISTRESS
[2020-12-11] MEDS: ALBUTEROL SULFATE/IPRATROPIU 3 ML SOL IH PRN ×3 (00:21→09:55)
[2020-12-11] MEDS: HYDROcodone/APAP 7.5/325 MG 1 TAB PO PRN ×4 (01:09→21:52)
--- NOTE | 2020-12-11 01:46 | NUR ---
REPOSITIONED PT, ORAL CARE AND SUCTIONING PROVIDED
[2020-12-11] MEDS: DEXT 5% / NACL 0.9% 1,000 ML IV SCH ×4 (02:41→23:17)
[2020-12-11] MEDS: PIPERACILLIN/TAZOBACTAM 3.375 GM in DEXTROSE 5% 50 ML IV SCH ×3 (04:07→21:25)
--- NOTE | 2020-12-11 04:07 | NUR ---
ADMINISTERED 0500H MEDICATION, REPOSITIONED PT, ORAL CARE AND SUCTIONING PROVIDED
[2020-12-11 05:42] LABS: BASOPHILS # (AUTO) 0.1 K/uL (0.00-0.22); BASOPHILS % (AUTO) 0.5 % (0.0-2.0); EOSINOPHILS # (AUTO) 0.8 K/uL (0-0.4); EOSINOPHILS % (AUTO) 6.9 % (0.0-4.0); HEMATOCRIT 24.7 % (36-52); HEMOGLOBIN 7.8 g/dL (12.0-18.0); LYMPHOCYTES # (AUTO) 1.5 K/uL (2.0-11.5); LYMPHOCYTES % (AUTO) 12.5 % (20.5-51.1); MEAN CORPUSCULAR HEMOGLOBIN 27 pg (27-31); MEAN CORPUSCULAR HGB CONC 32 g/dL (33-37); MEAN CORPUSCULAR VOLUME 86.2 fL (80-94); MONOCYTES % (AUTO) 8.7 % (1.7-9.3); NEUTROPHILS # (AUTO) 8.4 K/uL (1.8-7.7); NEUTROPHILS % (AUTO) 71.4 % (42.2-75.2); PLATELET COUNT (AUTO) 452 K/uL (140-450); RED BLOOD CELL COUNT(AUTO) 2.87 MIL/uL (4.20-6.10); RED CELL DISTRIBUTION WIDTH 19.8 % (11.6-13.7); WHITE BLOOD COUNT (AUTO) 11.8 K/uL (4.8-10.8)
[2020-12-11 05:58] LABS: ANION GAP 8.3 (8-16); CARBON DIOXIDE 29.2 mmol/L (21-32); CREATININE 0.5 mg/dL (0.6-1.3); POTASSIUM 3.5 mmol/L (3.5-5.1)
[2020-12-11 06:03] LABS: MAGNESIUM 1.8 mg/dL (1.8-2.4); PHOSPHORUS 4.1 mg/dL (2.5-4.9)
[2020-12-11] MEDS: BLOOD GLUCOSE MONITORING 1 DEV DEV FS SCH ×4 (06:27→21:41)
--- NOTE | 2020-12-11 06:28 | NUR ---
BLOOD GLUCOSE 102, ORAL CARE AND SUCTIONING PROVIDED
[2020-12-11] MEDS: ALBUTEROL SULFATE/IPRATROPIU 3 ML SOL IH SCH ×3 (07:17→19:00)
--- NOTE | 2020-12-11 07:27 | NUR ---
ENDORSED TO DAY SHIFT RN FOR CONTINUITY OF CARE
--- NOTE | 2020-12-11 07:35 | NUR ---
RECEIVE REPORT FROM FURNACE OPERATOR OIL OR GAS NURSE. PATIENT IN BED AWAKE. PATIENT BREATHING IS EVEN AND UNLABORED. RT AT BEDSIDE GIVING BREATHING TREATMENT. ALL SAFETY MEASURES IN PLACE. WILL CONTINUE TO MONITOR.
[2020-12-11] MEDS: MULTIVITAMIN 1 TAB GT SCH (09:00)
[2020-12-11] MEDS: ASCORBIC ACID 500 MG/5 ML ORASYR GT SCH ×2 (09:00→21:25)
[2020-12-11] MEDS: FERROUS SULFATE 300 MG/5 ML UDC GT SCH ×2 (09:00→21:25)
--- NOTE | 2020-12-11 10:25 | NUR ---
PATIENT REQUEST NORCO.PATIENT NPO AFTER MIDNIGHT. CLARIFIED WITH DR. BRANDI HOWE FOR PATIENT TO BE NPO EXCEPT MEDICATION.
--- NOTE | 2020-12-11 10:40 | NUR ---
DR. PAZ AT BEDSIDE ORDERS CHEST X-RAY.
[2020-12-11] MEDS: ALGINATE DRESSING MC SCH (13:00)
[2020-12-11] MEDS: GAUZE TP SCH (13:00)
--- NOTE | 2020-12-11 13:00 | NUR ---
DRESSING INTACT. PATIENT PENDING DEBRIDEMENT OF SACRAL WOUND.
--- NOTE | 2020-12-11 14:36 | NUR ---
PATIENT IN BED WATCHING TV. BREATHING IS EVEN AND UNLABORED. NO ACUTE DISTRESS NOTED. ALL SAFETY MEASURES IN PLACE. WILL CONTINUE TO MONITOR.
--- NOTE | 2020-12-11 15:36 | NUR ---
12/11/20 RD FOLLOW UP COMPLETED PLEASE REFER TO NUTRITION ASSESSMENT UNDER CARE ACTIVITY FOR ESTIMATED NUTRITIONAL NEEDS. 1. CURRENTLY NPO EXCEPT MEDS 2. WHEN MEDICALLY STABLE CONSIDER RESTARTING TF WITH VITAL 1.2 @ 70 ML/HR WITH STACIE ; FREE WATER FLUSH OF 110 ML Q4H -THIS WILL PROVIDE 2016 KCAL AND 126 GM OF PROTEIN, MEETING 100% OF ESTIMATED KCAL AND PROTEIN NEEDS. 3. CONTINUE VITAMIN C 500 MG AND MULTIVITAMIN ONCE DAILY 4. RD TO FOLLOW-UP 2-3 DAYS, HIGH RISK AKIN BAUER RD
--- NOTE | 2020-12-11 16:30 | NUR ---
RECEIVED REPORT FROM SHENG RICE
--- NOTE | 2020-12-11 17:16 | NUR ---
BLOOD SUGAR 95
--- NOTE | 2020-12-11 17:58 | NUR ---
WITH C/O GEN BODY PAIN 12/02. NORCO GIVEN ORDERED
--- NOTE | 2020-12-11 18:54 | NUR ---
PT RESTING IN BED, NO C/O PAIN, NO SOB
--- NOTE | 2020-12-11 19:33 | NUR ---
RECEIVED REPORT FROM DAY SHIFT RN, PATIENT ASLEEP, AND NO SIGNS OF DISTRESS
--- NOTE | 2020-12-11 21:42 | NUR ---
ALL SCHEDULED MEDS GIVEN, TUBE FEEDING STARTED, JEVITY 1.2 @ 65,ML/HR. PT IS AWAKE, NO SIGNS OF DISTRESS, HOB ELEVATED, ON VENTILATOR, TUBE FEEDING CHECK FOR PLACEMENT, NO RESIDUAL NOTED. SAFETY MEASURES IMPLEMENTED, CALL SHERMAN WITHIN REACH.
[2020-12-11] MEDS: ZOLPIDEM 5 MG TAB PO PRN (21:53)
--- NOTE | 2020-12-11 23:19 | NUR ---
IVF FINISHED AND REPLACED W/ A NEW D5 NS 1L AT 120ML/HR ORDERED, WILL MONITOR, CALL LIGHT WITHIN REACH.
[2020-12-12] VITALS (8 sets, daily range): BP systolic 105–151; BP diastolic 46–77
[2020-12-12] MEDS: HYDROcodone/APAP 7.5/325 MG 1 TAB PO PRN ×2 (01:58→21:45)
--- NOTE | 2020-12-12 02:39 | NUR ---
PT AWAKE, HOB ELEVATED, NO SIGNS OF DISTRESS, RESTING COMFORTABLY ON BED, PROVIDED SHEET FOR WARMTH, SAFETY MEASURE IMPLEMENTED, CALL SHERMAN WITHIN REACH
[2020-12-12 05:15] LABS: BASOPHILS # (AUTO) 0.1 K/uL (0.00-0.22); BASOPHILS % (AUTO) 0.5 % (0.0-2.0); EOSINOPHILS # (AUTO) 1.1 K/uL (0-0.4); EOSINOPHILS % (AUTO) 9.9 % (0.0-4.0); HEMATOCRIT 22.4 % (36-52); HEMOGLOBIN 7.3 g/dL (12.0-18.0); LYMPHOCYTES # (AUTO) 1.1 K/uL (2.0-11.5); LYMPHOCYTES % (AUTO) 10.1 % (20.5-51.1); MEAN CORPUSCULAR HEMOGLOBIN 28 pg (27-31); MEAN CORPUSCULAR HGB CONC 33 g/dL (33-37); MEAN CORPUSCULAR VOLUME 84.8 fL (80-94); MONOCYTES % (AUTO) 9.5 % (1.7-9.3); NEUTROPHILS # (AUTO) 7.7 K/uL (1.8-7.7); PLATELET COUNT (AUTO) 418 K/uL (140-450); RED BLOOD CELL COUNT(AUTO) 2.64 MIL/uL (4.20-6.10); WHITE BLOOD COUNT (AUTO) 10.9 K/uL (4.8-10.8)
[2020-12-12 05:34] LABS: ANION GAP 9.1 (8-16); CARBON DIOXIDE 28.4 mmol/L (21-32); CREATININE 0.5 mg/dL (0.6-1.3); POTASSIUM 3.5 mmol/L (3.5-5.1)
[2020-12-12 05:37] LABS: MAGNESIUM 1.7 mg/dL (1.8-2.4)
[2020-12-12] MEDS: BLOOD GLUCOSE MONITORING 1 DEV DEV FS SCH ×4 (06:11→20:34)
[2020-12-12] MEDS: DEXT 5% / NACL 0.9% 1,000 ML IV SCH ×2 (07:24→18:18)
--- NOTE | 2020-12-12 07:25 | NUR ---
RECEIVED BEDSIDE REPORT FROM HOOF AND SHOE INSPECTOR NURSE. PATIENT IS AWAKE RESPIRATION EVEN UNLABORED ON TRACH TO VENT. NO DISTRESS NOTED. SKIN IS WARM AND DRY. IV PATENT AND INTACT. GTUBE FEEDING ON HOLD. MALDONADO CATHETER DRAINING YELLOW URINE NOTED. CERVICAL COLLAR NOTED. PLAN OF CARE WAS DISCUSSED. ALL SAFETY MEASURES IN PLACE. BED IS AT LOW POSITION. CALL LIGHT WITHIN REACH. WILL CONTINUE TO MONITOR.
[2020-12-12] MEDS: ALBUTEROL SULFATE/IPRATROPIU 3 ML SOL IH SCH ×3 (07:30→19:56)
--- NOTE | 2020-12-12 07:30 | NUR ---
RECEIVED TRACH PT WITH A PORTEX 8 TRACH ON VENT. SETTINGS PRVC 16, VT 450, PEEP 5 AND FIO2 TITRATED TO 24%. PT IS AWAKE AND ALERT NOT IN ANY DISTRESS AT THIS TIME. PT STATES HE FEELS LIKE HE IS WHEEZING BREATHING TX TO BE ADMINISTERED. NO WHEEZING HEARD ON AUSCULTATION. VENT IS PLUGGED INTO A RED OUTLET WITH ALARMS ON AND FUNCTIONING. AIRWAY IS SECURE AND PATENT. WILL CONTINUE TO MONITOR.
--- NOTE | 2020-12-12 07:38 | NUR ---
ENDORSED PT TO DAY SHIFT NURSE FOR CONTINUITY OF CARE.
[2020-12-12] MEDS: MULTIVITAMIN 1 TAB GT SCH (09:00)
[2020-12-12] MEDS: FERROUS SULFATE 300 MG/5 ML UDC GT SCH ×2 (09:00→20:33)
[2020-12-12] MEDS: ASCORBIC ACID 500 MG/5 ML ORASYR GT SCH ×2 (09:00→20:34)
--- NOTE | 2020-12-12 09:00 | NUR ---
HELD SCHEDULED MEDS PER MD ORDER, PATIENT WILL HAVE SURGERY TODAY.
[2020-12-12] MEDS: MORPHINE SULFATE 2 MG/ML SYR IVP PRN ×2 (09:23→14:53)
--- NOTE | 2020-12-12 09:23 | NUR ---
PATIENT COMPLAINED OF PAIN 3/10. PRN PAIN MEDS GIVEN PER ORDER. WILL CONTINUE TO MONITOR.
[2020-12-12] MEDS: PIPERACILLIN/TAZOBACTAM 3.375 GM in DEXTROSE 5% 50 ML IV SCH ×3 (12:27→23:06)
[2020-12-12] MEDS: ALGINATE DRESSING MC SCH (13:00)
[2020-12-12] MEDS: GAUZE TP SCH (13:00)
--- NOTE | 2020-12-12 13:00 | NUR ---
PATIENT REFUSED WOUND CARE, PER PATIENT HE WILL HAVE SURGERY TODAY FOR HIS WOUND. EXPLAINED THE BENEFITS OF WOUND CARE X2 STILL REFUSED. REPOSITIONED PATIENT. WILL ASK AGAIN LATER.
--- NOTE | 2020-12-12 14:53 | NUR ---
PATIENT COMPLAINED OF SACRAL PAIN 3/10 PRN PAIN MEDS GIVEN PER ORDER. WILL CONTINUE TO MONITOR.
[2020-12-12] MEDS: ALBUTEROL SULFATE/IPRATROPIU 3 ML SOL IH PRN (15:35)
[2020-12-12] MEDS: ACETAMINOPHEN 650 MG/20.3 ML UDC GT PRN ×2 (16:14→21:45)
--- NOTE | 2020-12-12 16:16 | NUR ---
PATIENT TEMPERATURE 102.1 ORAL. COOLING MEASURE APPLIED, PRN TYLENOL FOR FEVER GIVEN PER ORDER. WILL CONTINUE TO MONITOR
--- NOTE | 2020-12-12 18:00 | NUR ---
RECHECKED PATIENT TEMPERATURE, PATIENT TEMP 102. AXILLARY, CONTINUE COOLING MEASURES AND WILL NOTIFY
[2020-12-12] MEDS ORDERED: MORPHINE SULFATE 4 MG/ML SYR IVP SCH (18:30)
--- NOTE | 2020-12-12 18:30 | NUR ---
DR. CRABTREE AT BEDSIDE
--- NOTE | 2020-12-12 18:38 | NUR ---
PRE-MEDICATED PATIENT PER DR. CRABTREE ORDER. ADMINISTERED 4MG MORPHINE IV PUSH.
--- NOTE | 2020-12-12 19:26 | NUR ---
ENDORSED PATIENT TO BORING MACHINE OPERATOR FOR CONTINUITY OF CARE
--- NOTE | 2020-12-12 19:30 | NUR ---
RECIEVED BEDSIDE ENDORSMENT FROM DAY SHIFT RN, PT LYING IN BED, A&0X3, ABLE TO MAKE NEEDS KNOWN AND NODS TO QUESTIONS YES OR NO, ST ON MONITOR, TRACH TO VENT AC [id number] 28% TV 450 PEEP 5 RATE 16, LUNGS DIMINIHED UPON AUSCULTATION, GTUBE IN PLACE AND CLAMPED, LAC 20 PIV INFUSING D5 NS @ 120MLS/HR, FC IN PLACE DRAINING VIA GRAVITY, SKIN WARM DRY AND NON INTACT, FEBRILE W/ FEVER 100.3, SEE WOUND ASSESSMENT, PT SHOWING NO SIGNS OF ACUTE DISTRESS, SAFETY MEASURES IN PLACE, WILL CONTINUE WITH CURRENT POC
[2020-12-12] MEDS: SERTRALINE 50 MG TAB PO SCH (20:34)
--- NOTE | 2020-12-12 20:46 | NUR ---
ADMINISTERED 2100H MEDICATIONS PER MD ORDERS, BLOOD GLUCOSE 108, ORAL CARE AND SUCTIONING PROVIDED, REPOSITIONED PT
[2020-12-12] MEDS: ZOLPIDEM 5 MG TAB PO PRN (21:45)
--- NOTE | 2020-12-12 21:53 | NUR ---
PT REQUESTED PAIN MED FOR GEN PAIN W/ PAIN SCALE 4 OF 10, WELL AMBIEN FOR SLEEPING AND TYLENOL FOR LOW GRADE FEVER
--- NOTE | 2020-12-12 23:06 | NUR ---
ADMINISTERED 0000H MEDICAITON PER MD ORDERS
[2020-12-13] VITALS (9 sets, daily range): BP systolic 103–173; BP diastolic 45–95
--- NOTE | 2020-12-13 00:04 | NUR ---
PT ASLEEP AND SHOWING NO SIGNS OF ACUTE DISTRESS
[2020-12-13] MEDS: ACETAMINOPHEN 650 MG/20.3 ML UDC GT PRN (03:39)
--- NOTE | 2020-12-13 03:59 | NUR ---
PT HAS FEVER 100.74, ADMINISTERED TYLENOL 650MG AND STARTED COOLING MEASURES
[2020-12-13] MEDS: DEXT 5% / NACL 0.9% 1,000 ML IV SCH ×3 (05:02→23:55)
[2020-12-13] MEDS: PIPERACILLIN/TAZOBACTAM 3.375 GM in DEXTROSE 5% 50 ML IV SCH ×4 (05:02→23:10)
--- NOTE | 2020-12-13 05:02 | NUR ---
ADMINISTERED 0600H MEDICATIONS PER MD ORDERS
[2020-12-13 05:52] LABS: BASOPHILS % (AUTO) 0.3 % (0.0-2.0); EOSINOPHILS # (AUTO) 0.2 K/uL (0-0.4); EOSINOPHILS % (AUTO) 1.5 % (0.0-4.0); HEMATOCRIT 23.4 % (36-52); HEMOGLOBIN 7.4 g/dL (12.0-18.0); LYMPHOCYTES # (AUTO) 0.7 K/uL (2.0-11.5); LYMPHOCYTES % (AUTO) 5.3 % (20.5-51.1); MEAN CORPUSCULAR HEMOGLOBIN 27 pg (27-31); MEAN CORPUSCULAR HGB CONC 32 g/dL (33-37); MEAN CORPUSCULAR VOLUME 85.4 fL (80-94); MONOCYTES # (AUTO) 0.8 K/uL (0.8-1.0); MONOCYTES % (AUTO) 6.8 % (1.7-9.3); NEUTROPHILS # (AUTO) 10.7 K/uL (1.8-7.7); NEUTROPHILS % (AUTO) 86.1 % (42.2-75.2); PLATELET COUNT (AUTO) 418 K/uL (140-450); RED BLOOD CELL COUNT(AUTO) 2.74 MIL/uL (4.20-6.10); RED CELL DISTRIBUTION WIDTH 19.7 % (11.6-13.7); WHITE BLOOD COUNT (AUTO) 12.4 K/uL (4.8-10.8)
[2020-12-13 06:03] LABS: ANION GAP 12.1 (8-16); CARBON DIOXIDE 25.8 mmol/L (21-32); CREATININE 0.6 mg/dL (0.6-1.3)
[2020-12-13] MEDS: BLOOD GLUCOSE MONITORING 1 DEV DEV FS SCH ×4 (06:27→21:27)
--- NOTE | 2020-12-13 06:28 | NUR ---
BLOOD GLUCOSE 134
[2020-12-13 06:30] LABS: POTASSIUM 2.9 mmol/L (3.5-5.1)
[2020-12-13 06:43] LABS: MAGNESIUM 1.7 mg/dL (1.8-2.4); PHOSPHORUS 3.4 mg/dL (2.5-4.9)
[2020-12-13] MEDS: ALBUTEROL SULFATE/IPRATROPIU 3 ML SOL IH SCH ×3 (07:21→19:10)
--- NOTE | 2020-12-13 07:38 | NUR ---
ENDORSED TO DAY SHIFT RN FOR CONTINUITY OF CARE
--- NOTE | 2020-12-13 07:40 | NUR ---
RECEIVED REPORT FROM PERMIT REVIEW ASSISTANT RN. PT LYING IN BED, A&0X3, ABLE TO MAKE NEEDS KNOWN AND NODS TO QUESTIONS YES OR NO. SR-ST ON MONITOR. TRACH TO VENT AC PRVC FI02 24% TV 450 PEEP 5 RATE 16, LUNG SOUNDS DIMINISHED. GTUBE IN PLACE, RUNNING JEVITY AT 65 ML/HR WITH 50 ML FREE WATER FLUSH EVERY 6 HOURS. IV CLEAN, DRY, AND INTACT, ON LAC 20 GAUGE, INFUSING D5 NS @ 120MLS/HR. FC IN PLACE DRAINING VIA GRAVITY. SKIN WARM DRY AND NON INTACT, SEE WOUND ASSESSMENT. NO SIGNS OF DISTRESS OR PAIN. SAFETY MEASURES IN PLACE, BED LOCKED, BED IN LOW POSITION, SIDE RAILS X2, HEAD OF BED AT 30 DEGREES. WILL CONTINUE TO MONITOR.
[2020-12-13] MEDS: ASCORBIC ACID 500 MG/5 ML ORASYR GT SCH ×2 (09:11→21:28)
[2020-12-13] MEDS: MULTIVITAMIN 1 TAB GT SCH (09:11)
[2020-12-13] MEDS: FERROUS SULFATE 300 MG/5 ML UDC GT SCH ×2 (09:11→21:27)
--- NOTE | 2020-12-13 09:15 | NUR ---
CHECKED RESIDUAL 40ML. ADMINISTERED SCHEDULED AM MEDICATION. FLUSHED AFTER. PROVIDED ORAL CARE, HYGIEN CARE, MALDONADO CARE, AND CHG BATH. WILL CONTINUE TO MONITOR.
[2020-12-13] MEDS ORDERED: MORPHINE SULFATE 2 MG/ML SYR IVP PRN (09:55)
[2020-12-13] MEDS: HYDROmorphone 1 MG/ML AMP IVP PRN ×3 (10:30→18:48)
--- NOTE | 2020-12-13 11:53 | NUR ---
CRITICAL LAB K 2.9. FLOR PAGED AND AWARE. ORDER PLACED. WILL CONTINUE TO MONITOR.
[2020-12-13] MEDS ORDERED: POTASSIUM CHLORIDE 20% 40 MEQ/15 ML UDC GT SCH ×2 (13:00→17:00)
[2020-12-13] MEDS: GAUZE TP SCH (13:08)
[2020-12-13] MEDS: ALGINATE DRESSING MC SCH (13:08)
--- NOTE | 2020-12-13 14:20 | NUR ---
CHECKED ON PATIENT. NO SIGN OF DISTRESS OR PAIN. WILL CONTINUE TO MONITOR.
[2020-12-13] MEDS: FUROSEMIDE 40 MG/4 ML VIAL IVP SCH ×3 (14:21→17:32)
--- NOTE | 2020-12-13 14:26 | NUR ---
DR. RAY APPROVED RD RECOMMENDATIONS FOR VITAL @ 70 ML/HR WITH STACIE BID. KRYSTAL NAVARRO WAS NOTIFIED OF CHANGES.
--- NOTE | 2020-12-13 14:36 | NUR ---
12/13/20 RD FOLLOW UP COMPLETED PLEASE REFER TO NUTRITION ASSESSMENT UNDER CARE ACTIVITY FOR ESTIMATED NUTRITIONAL NEEDS. 1. RD RECOMMENDED VITAL 1.2 @ 70 ML/HR WITH STACIE ; START AT 50 ML/HR AND ADVANCE TO 70 ML AFTER 4 HR. FREE WATER FLUSH OF 150 ML Q6H -THIS WILL PROVIDE 2016 KCAL AND 126 GM OF PROTEIN, MEETING 100% OF ESTIMATED KCAL AND PROTEIN NEEDS. 2. CONTINUE VITAMIN C 500 MG AND MULTIVITAMIN ONCE DAILY 3. RD TO FOLLOW-UP 2-3 DAYS, HIGH RISK AKIN BAUER RD
[2020-12-13] MEDS: HYDROcodone/APAP 7.5/325 MG 1 TAB PO PRN (16:03)
--- NOTE | 2020-12-13 16:30 | NUR ---
CHANGED PATIENT LINEN AND PROVIDED WOUND CARE. WILL CONTINUE TO MONITOR.
--- NOTE | 2020-12-13 17:10 | NUR ---
KIMO HORTON, ASKED TO CANCEL DISCHARGE ORDER, SAID OKAY. LEFT ACTIVE, IF PATIENT WANTS TO BE DISCHARGED TOMORROW. WILL CONTINUE TO MONITOR. Addendum: 12/13/20 at 1757 by Gabriel Bueno RN RN IGNORE ABOVE NOTE.
[2020-12-13] MEDS: ALBUTEROL SULFATE/IPRATROPIU 3 ML SOL IH PRN (17:15)
--- NOTE | 2020-12-13 17:57 | NUR ---
CHECKED ON PATIENT. NO SIGN OF DISTRESS OR PAIN. WILL CONTINUE TO MONITOR. WILL ENDORSE TO ASSOCIATE PROGRAMMER.
--- NOTE | 2020-12-13 19:36 | NUR ---
ENDORSED TO SUPERINTENDENT GEOPHYSICAL LABORATORY FOR CONTINUITY OF CARE.
--- NOTE | 2020-12-13 20:05 | NUR ---
RECEIVED PATIENT IN BED AWAKE, ALERT AND COHERENT.
[2020-12-13] MEDS: ZOLPIDEM 5 MG TAB PO PRN (21:28)
[2020-12-13] MEDS: SERTRALINE 50 MG TAB PO SCH (21:31)
--- NOTE | 2020-12-13 22:30 | NUR ---
PATIENT REQUESTING FOR BREATHING TREATMENT, RT ASSIGNED MADE AWARE.
--- NOTE | 2020-12-13 23:00 | NUR ---
PATIENT C/OPAIN IN STOMACH MEDICATED WITH MORPHINE 2 MG IVP
[2020-12-13] MEDS: MORPHINE SULFATE 2 MG/ML SYR IVP PRN (23:42)
--- NOTE | 2020-12-13 23:49 | NUR ---
PATIENT C/O NAUSEA MEDICATED WITH ZOFRAN 4 MG IVP
[2020-12-14] VITALS (9 sets, daily range): BP systolic 101–148; BP diastolic 57–67
--- NOTE | 2020-12-14 02:23 | NUR ---
PATIENT STILL REQUESTING FOR BREATHING TREATMENT, RN CALLED OVER THE PHONE MADE AN RT AWARE, HE PROMISED TO TELL THE LADY RT ASSIGNED TO THE PATIENT REGARDING BREATHING TREATMENT THAT WAS NOT GIVEN PREVIOUSLY
[2020-12-14] MEDS: ALBUTEROL SULFATE/IPRATROPIU 3 ML SOL IH PRN (02:39)
--- NOTE | 2020-12-14 02:45 | NUR ---
PRN TX GIVEN AT THIS TIME DUE TO PT C/O OF SOB. PT TOLERATED TX WELL. NO ADVERSE REACTION. WILL CONTINUE TO MONITOR PT
--- NOTE | 2020-12-14 03:00 | NUR ---
PATIENT WAS CALMLY ASLEEP.
[2020-12-14] MEDS: PIPERACILLIN/TAZOBACTAM 3.375 GM in DEXTROSE 5% 50 ML IV SCH ×2 (05:22→12:00)
[2020-12-14 05:27] LABS: BASOPHILS # (AUTO) 0.1 K/uL (0.00-0.22); BASOPHILS % (AUTO) 0.4 % (0.0-2.0); EOSINOPHILS # (AUTO) 0.3 K/uL (0-0.4); EOSINOPHILS % (AUTO) 2.5 % (0.0-4.0); HEMATOCRIT 23.7 % (36-52); HEMOGLOBIN 7.5 g/dL (12.0-18.0); LYMPHOCYTES # (AUTO) 0.9 K/uL (2.0-11.5); LYMPHOCYTES % (AUTO) 6.9 % (20.5-51.1); MEAN CORPUSCULAR HEMOGLOBIN 26 pg (27-31); MEAN CORPUSCULAR HGB CONC 32 g/dL (33-37); MEAN CORPUSCULAR VOLUME 83.4 fL (80-94); MONOCYTES # (AUTO) 1.4 K/uL (0.8-1.0); MONOCYTES % (AUTO) 11.2 % (1.7-9.3); NEUTROPHILS # (AUTO) 10.1 K/uL (1.8-7.7); PLATELET COUNT (AUTO) 426 K/uL (140-450); RED BLOOD CELL COUNT(AUTO) 2.84 MIL/uL (4.20-6.10); RED CELL DISTRIBUTION WIDTH 20.1 % (11.6-13.7); WHITE BLOOD COUNT (AUTO) 12.7 K/uL (4.8-10.8)
[2020-12-14 06:00] LABS: ANION GAP 11.3 (8-16); CARBON DIOXIDE 29.9 mmol/L (21-32); CREATININE 0.5 mg/dL (0.6-1.3); POTASSIUM 3.2 mmol/L (3.5-5.1)
[2020-12-14 06:05] LABS: MAGNESIUM 1.6 mg/dL (1.8-2.4); PHOSPHORUS 3.8 mg/dL (2.5-4.9)
--- NOTE | 2020-12-14 07:18 | NUR ---
REPORTS WERE GIVEN , ENDORSED CARE.
--- NOTE | 2020-12-14 07:19 | NUR ---
RECEIVED REPORT FROM FIELD AIDE NURSE. PATIENT TRACH TO VENT ON FIO2:24%. NO DISTRESS NOTED. DENIES ANY PAIN. IV SITE INTACT, PATENT, AND INFUSING IVF PER MD ORDERS. MALDONADO CATH IN PLACE, GTUBE SITE INTACT, PATENT ON TUBE FEEDING. REVIEWED PLAN OF CARE WITH PATIENT. PATIENT VERBALIZED UNDERSTANDING. REVIEWED PLAN OF CARE WITH PATIENT. PATIENT NODDED UNDERSTANDING. SAFETY MEASURES IN PLACE, CALL LIGHT WITHIN REACH. WILL CONTINUE TO MONITOR.
[2020-12-14] MEDS: BLOOD GLUCOSE MONITORING 1 DEV DEV FS SCH ×2 (07:30→11:30)
[2020-12-14] MEDS: ALBUTEROL SULFATE/IPRATROPIU 3 ML SOL IH SCH ×2 (07:38→13:12)
[2020-12-14] MEDS: DEXT 5% / NACL 0.9% 1,000 ML IV SCH (08:15)
[2020-12-14] MEDS: MULTIVITAMIN 1 TAB GT SCH (09:16)
[2020-12-14] MEDS: ASCORBIC ACID 500 MG/5 ML ORASYR GT SCH (09:16)
[2020-12-14] MEDS: FERROUS SULFATE 300 MG/5 ML UDC GT SCH (09:16)
[2020-12-14] MEDS: HYDROcodone/APAP 7.5/325 MG 1 TAB PO PRN (09:22)
[2020-12-14] MEDS ORDERED: POTASSIUM CHLORIDE 10 MEQ TABER PO SCH (09:30)
[2020-12-14] MEDS ORDERED: POTASSIUM CHLORIDE 20% 40 MEQ/15 ML UDC GT SCH (09:30)
--- NOTE | 2020-12-14 09:36 | NUR ---
SCHEDULED MEDICATIONS DUE GIVEN. WILL CONTINUE TO MONITOR.
--- NOTE | 2020-12-14 10:50 | NUR ---
SCHEDULED MEDICATIONS DUE GIVEN. WILL CONTINUE TO MONITOR.
[2020-12-14] MEDS ORDERED: MAG SULF 2000 MG/WATER PREMIX 50 ML IV SCH (11:00)
[2020-12-14] MEDS ORDERED: Alginate Dressing MC (12:20)
[2020-12-14] MEDS ORDERED: PIPE1SOL IV (12:20)
[2020-12-14] MEDS: ALGINATE DRESSING MC SCH (13:15)
[2020-12-14] MEDS: GAUZE TP SCH (13:15)
--- NOTE | 2020-12-14 13:16 | NUR ---
SCHEDULED MEDICATIONS DUE GIVEN. WILL CONTINUE TO MONITOR.
--- NOTE | 2020-12-14 16:00 | NUR ---
CALLED [facility] AND GAVE REPORT TO HAMILTON RICE. ANSWERED ALL OF HER QUESTIONS REGARDING TRANSFER AND EXPECTED PICKUP TIME OF 1600 BY [facility]. RN VERBALIZED UNDERSTANDING. CALLED PATIENT SISTER FESTUS TO LET HER KNOW REGARDING TRANSFER. FESTUS VERBALIZED UNDERSTANDING. DISCHARGE INSTRUCTIONS PROVIDED TO PATIENT IN PREFERRED LANGUAGE OF COLOMBIAN. NEW/CHANGED MEDICATION REGIMEN AND SIDE EFFECTS, DIET REGIMEN, AND DISEASE PROCESS OF CHRONIC ANEMIA. ANSWER ALL OF HIS QUESTIONS REGARDING TRANSFER. PATIENT NODDED UNDERSTANDING.
--- NOTE | 2020-12-14 16:50 | NUR ---
[facility] ON UNIT TO TAKE PATIENT TO [facility] [place]. PATIENT TRANSFERRED AT THIS TIME IN STABLE CONDITION.
== END 2020-12-14 17:00 | DRG 853 ==
LOC: MED 23:40 → MTU 12-07 05:56
PROVIDERS: ADMIT Family Medicine; ATTEND Family Medicine
PROC: 5A1955Z Respiratory Ventilation, Greater than 96 Consecutive Hours (ICD-10-PCS; principal; 2020-12-06)
PROC: 30233N1 Transfusion of Nonautologous Red Blood Cells into Peripheral Vein, Percutaneous Approach (ICD-10-PCS; 2020-12-07)
PROC: 0DJ08ZZ Inspection of Upper Intestinal Tract, Via Natural or Artificial Opening Endoscopic (ICD-10-PCS; 2020-12-08)
PROC: 0DBL8ZZ Excision of Transverse Colon, Via Natural or Artificial Opening Endoscopic (ICD-10-PCS; 2020-12-08)
PROC: 0JB70ZZ Excision of Back Subcutaneous Tissue and Fascia, Open Approach (ICD-10-PCS; 2020-12-12)
DX: A41.59 Other Gram-negative sepsis (principal); L89.154 Pressure ulcer of sacral region, stage 4; J69.0 Pneumonitis due to inhalation of food and vomit; E43 Unspecified severe protein-calorie malnutrition; J96.21 Acute and chronic respiratory failure with hypoxia; D68.59 Other primary thrombophilia; E11.52 Type 2 diabetes mellitus with diabetic peripheral angiopathy with gangrene; J44.1 Chronic obstructive pulmonary disease with (acute) exacerbation; N39.0 Urinary tract infection, site not specified; Z99.11 Dependence on respirator [ventilator] status; L03.113 Cellulitis of right upper limb; I10 Essential (primary) hypertension; K56.41 Fecal impaction; K57.90 Diverticulosis of intestine, part unspecified, without perforation or abscess without bleeding; K64.8 Other hemorrhoids; R13.10 Dysphagia, unspecified; Z20.822 Contact with and (suspected) exposure to COVID-19; D50.9 Iron deficiency anemia, unspecified; E66.9 Obesity, unspecified; E83.39 Other disorders of phosphorus metabolism; E03.9 Hypothyroidism, unspecified; D47.3 Essential (hemorrhagic) thrombocythemia; L89.616 Pressure-induced deep tissue damage of right heel; F41.1 Generalized anxiety disorder; E83.42 Hypomagnesemia; E86.0 Dehydration; Z74.01 Bed confinement status; Z93.0 Tracheostomy status; Z93.1 Gastrostomy status; Z86.718 Personal history of other venous thrombosis and embolism; Z68.31 Body mass index [BMI] 31.0-31.9, adult
CPT/HCPCS: 36415; 36430; 71045; 71275; 76881; 80048; 80053; 80305; 81001; 82150; 82272; 82607; 82728; 82746; 82948; 83036; 83540; 83690; 83735; 83880; 84100; 84436; 84439; 84443; 84479; 84484; 85025; 85045; 85379; 85610; 85730; 86886; 86900; 86901; 86920; 87040; 87070; 87081; 87086; 87205; 93005; 93971; 94002; 94003; 94640; 96361; 96365; 96366; 96367; 97110; 99285; A4649; J0456; J0696; J1170; J1200; J1940; J2250; J2270; J2405; J2543; J2916; J3010; J3475; J7060; J7512; P9016; Q9967